=== PATIENT | male | born 1935 | race African-American/Black ===

== ENCOUNTER 2017-11-18 08:22 | Emergency (ER) | payer OTHER ==
--- OUTSIDE RECORDS SUMMARY | 2017-11-18 08:34 | XMS REPORT ---
:1935 External Reference #:[id number] Author Organization [facility] Address [address] [place] [address] Phone [phone] Care Team Providers Name Role Phone Enrique Espinoza MD Care Team Information Networking Technician Unavailable Enrique Espinoza MD Primary Care Physician Unavailable Payers Type Date Identification Payment Subscriber Numbers Provider Health Maintenance Effective: Policy Number: Anibal Collazo [facility] [place] [place] 05/03/2012 [id number] [facility] Expires: 06/02/2016 Group Number: [id number] [id number] Group Name: NETTEYOGI CabaLULU [id number] PayID: [id number] Health Maintenance Effective: Policy Number: [facility] [place] 05/18/2016 [id number] [facility] Group Number: [id number] [id number] PayID: [id number] [place] [address] Problems Date Description Provider Status Onset: 05/23/2009 Essential hypertension Aj Bauer M.D. Active Onset: 05/23/2009 Asthma without status asthmaticus Aj Bauer M.D. Active Onset: 08/28/2009 Type 2 diabetes mellitus Alejandro Ventura M.D. Active Onset: 10/19/2011 Acute maxillary sinusitis Alejandro Ventura M.D. Active Onset: 04/08/2012 Allergic rhinitis Alejandro Ventura M.D. Active Onset: 2012 Pure hypercholesterolemia Alejandro Ventura M.D. Active Onset: 11/16/2013 Cobalamin deficiency Enrique Espinoza M.D. Active Onset: 12/17/2014 Edema Ryan Duenas M.D. Active Onset: 04/09/2015 Acute upper respiratory infection, Enrique Espinoza M.D. Active unspecified Onset: 07/13/2016 Mixed hyperlipidemia Enrique Espinoza M.D. 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 [employer] Cigarette Use Former Cigarette Smoker quit 1975 ETOH Use Occasionally consumes alcohol Smoking Patient is a former smoker Daily Caffeine Consumes on average 1 cup of coffee per day Exercise Type/Frequency Current Does not exercise currently Allergies, Adverse Reactions, Alerts Date Description Reaction Status Severity Comments 02/04/2011 NKDA active 04/23/2009 Shellfish-derived Products active 03/29/2010 Cats active 04/23/2010 Ants active Medications Medication Date Status Form Strength Qnty SIG Indications Ordering Provider Valsartan 07/13 Active Tablets 160mg 90tab 1 by Enrique Watkins /2016 s mouth Darlow, once a M.D. day Rosuvastatin 07/13 Active Tablets 5mg 90tab 1 by E78.2 Enrique Watkins Calcium s mouth Darlow, every day M.D. Epipen 2-Larry 07/11 Active Solution 0.3mg/0.3 2unit use as Auto-Inject ML s directed NIMESH Mccullough Zyrtec Allergy Active Capsules 10mg 1 po qd Unknown /0000 prn Dymista Active Suspension 137-50mcg 1 spray Unknown /0000 /Act each nostril twice daily. Systane Active Solution 0.4-0.3% 2 or 3 Unknown /0000 times daily Montelukast Active Tablets 10mg 1 by Unknown Sodium /0000 mouth every day Mometasone Active Suspension 50mcg/Act use two Unknown Furoate /0000 sprays in each nostril every day as needed for allergies Amoxicillin/Clav 05/06 Hx Tablets 500-125mg 28tab 1 by J01.90 Honey chou /2017 s mouth Tre, Potassium - twice a CAR LOADER 07/12 day x days Azithromycin 06/05 Hx Tablets 250mg 7tabs 2 take by J06.9 Honey mouth Tre, - tabletsto CAR LOADER 07/12 day, one tab days 2-5 until finished Azithromycin 05/02 Hx Tablets 250mg 7tabs 2 take by Latonia mouth Jamel, - tabletsto CAR LOADER 06/05 day, one tab days 2-5 until finished Guaifenesin ac 07/08 Hx Syrup 100-10mg/ 473ml 1-2 Ryan J. 5ML teaspoon Breiman, - by mouth M.D. 05/02 every hours as needed cough Prednisone 07/08 Hx Tablets 20mg 18tab 3 x 3 Ryan J. s days 2 x Breiman, - 3 days 1 M.D. 05/02 x 3 Guaifenesin ac 06/24 Hx Syrup 100-10mg/ 4oz 1-2 Amaris 5ML teaspoon [place], - by mouth Afnp-C every hours as needed cough Doxycycline 06/24 Hx Capsules 100mg 20cap 1 by [id number] Amaris Hyclate /2015 s mouth [place], - twice a Afnp-C Amoxicillin 06/05 Hx Tablets 875mg 14tab 1 tab J00 Enrique A. s twice a Darlow, - day x 7 M.D. Amoxicillin 04/09 Hx Tablets 875mg 14tab 1 tab J06.9 Enrique A. s twice a Darlow, - day x 7 M.D. Lasix 12/17 Hx Tablets 20mg 10tab 1 by Ryan Keys /2014 s mouth Breiman, - every day M.D. 06/05 Swelling Amoxicillin 03/28 Hx Tablets 875mg 14tab 1 tab 460 Enrique A. /2013 s twice a Darlow, - day x 7 M.D. Amoxicillin/Clav 08/29 Hx Tablets 500-125mg 20tab 1 po bid 461.0 Alejandro chou /2013 s Wen Ventura Potassium - 11/16 Nascobal 08/10 Hx Solution 500mcg/0. 2.3ml one spray 281.1 Enrique A. 1ML in one Alexis - nostril M.DSandy 06/05 per week administe r one hour before or after hot liquid or food Azithromycin 08/08 Hx Tablets 250mg 6tabs 2 po Allen A. today and Wen Ventura - 1 po x 4 Aleve 03/08 Hx Tablets 220mg 1 po bid [facility] 07/12 [facility] [employer] [place] Saw Corinne 03/08 Hx Capsules 160mg 1 PO qd [facility] 06/05 Of [employer] [place] Astelin 03/08 Hx Solution 137mcg/Sp 1midi 1-2 ray sprays [facility] 07/12 nostril Of [employer] [place] bid Valsartan/Hydroc 09/17 Hx Tablets 160-12.5m 90tab Take 1 401.9 Enrique A. hlorothiazide g s Tablet Alexis - Daily M.DSandy 05/02 Atorvastatin 08/12 Hx Tablets 40mg 90tab 1 po qd 272.4 Allen A. s Wen Ventura - 05/02 Azithromycin 07/20 Hx Tablets 250mg 6tabs 2 po 465.9 Allen A. today and Wen Ventura - 1 po x 4 Azithromycin 10/18 Hx Tablets 250mg 6tabs 2 po 461.0 Allen A. today and Wen Ventura - 1 po x 4 Pravastatin 10/09 Hx Tablets 40mg 90tab take one 272.4 Allen A. Sodium s tablet by Wen Ventura - mouth qhs 08/12 Diovan HCT 10/05 Hx Tablets 160-12.5m 90tab 1 po qd 401.9 Allen A. /2011 g s Wen Ventura - 09/17 Metformin HCL ER 10/05 Hx Tablets ER 750mg 90tab take one 250.00 Enrique Watkins 24HR s tablet by Alexis - mouth M.Rodney 05/02 morning Medrol 01/20 Hx Tablets 4mg 1tabs dose-pack 461.1 as Wen Ventura - instructe 10/05 Diovan HCT 01/20 Hx Tablets 80-12.5mg 30tab one tab 401.9 Allen s po daily Wen Ventura - 10/05 Azithromycin 09/16 Hx Tablets 250mg 6tabs 2 po today and Wen Ventura - 1 po x 4 Diovan 09/15 Hx Tablets 80mg 90tab 1 po qd 401.9 Poneto s Wen Ventura - 01/20 Metformin HCL ER 09/15 Hx Tablets ER 500mg 90tab 1 po qd 250.00 Allen 24HR s Wen Ventura - 10/05 Amoxicillin/Clav 05/26 Hx Tablets 500-125mg 20tab 1 po bid 465.9 Poneto June anat s Wen Ventura Potassium - 07/19 Pataday 05/12 Hx Solution 0.2% 3mont apply to hs affected Wen Ventura - eye(s) 10/05 Buspirone HCL 04/23 Hx Tablets 15mg 60tab one tab 300.00 Allen A. s po bid as Wen Ventura - discussed 07/19 Pravastatin 04/23 Hx Tablets 20mg 90tab 1 po qd 272.4 Allen ASandy s Wen Ventura - 10/09 Amoxicillin-Pot 09/19 Hx Tablets 500-125mg 20tab one tab 461.0 Allen A. Clavulanate s po every Wen Ventura - 12 hours 01/13 for Breeze 2 Testing 07/24 Hx 1Box test blood Tre, - sugar CAR LOADER 05/02 qd-bid Breeze 2 Lancets 07/24 Hx 1Box use with Breeze 2 Tre, - glucomete CAR LOADER 05/02 r qd-bid Pravastatin 07/22 Hx Tablets 10mg 90tab 1 po qd 272.4 Allen A. Sodium s Wen Ventura - 04/23 Metformin HCL 07/22 Hx Tablets ER 500mg 90tab 1 po qd 250.00 24HR s Tuan - Afnp-C 09/15 Epipen 07/08 Hx Device 0.3mg/0.3 2unit use as Alejandro Sandy ML s directed Wen Ventura - (1:1000 07/11 Proventyl HFA 07/08 Hx Aerosol 90mcg/Act 1unit two puffs Allen . s wilver Ventura M.D. - four 07/15 hours needed Astepro 06/01 Hx Solution 137mcg/Sp 2 sprays ray bid [facility] 07/08 Of Patanol 06/01 Hx Solution 0.1% 1 gtt Both eyes [facility] - bid [facility] 05/12 Of Bactrim DS 06/01 Hx Tablets 800-160mg 20tab 1 po bid Aj T. s Juancarlos, - M.D. 07/08 Azithromycin 05/23 Hx Tablets 250mg 6tabs 2 po Aj T. /2009 today and Juancarlos, - 1 po x 4 M.D. Triamcinalone 05/14 Hx 0.1% 30gm apply to Allen A. Acetonide affected Wen Ventura - area 03/29 bid-tid Diovan 04/23 Hx Tablets 40mg 90tab 1 po qd Allen A. s Wen Ventura - 09/15 Tricor 04/23 Hx Tablets 48mg 1 po qd [facility] 07/08 Of Nasonex 04/23 Hx Suspension 50mcg/Act 3unit 2 Enrique A. s sprays/no Darlow, - stril/day M.D. 07/12 prn /2016 Patanase 04/23 Hx Solution 0.6% 2 Sprays Each [facility] - Nostril [facility] 07/08 prn Of Ipratropium 04/23 Hx Solution 0.06% 2 Sprays [facility] [place] Nasal Each Medicine Solution - Nostirl [facility] 07/08 prn Of Advair Diskus 04/23 Hx Misc 250-50mcg 1 puff /2008 /Dose bid [facility] 07/08 Of Ventolin HFA 04/23 Hx Aerosol 108(90Bas 2 puffs e) mcg/ac qid prn [facility] 07/08 Of Zyrtec Allergy Hx Tablets 10mg 30tab 1 po qd Unknown /0000 s - 07/15 Econazole Hx Cream 1% 45gm apply bid Unknown Nitrate /0000 to - affected 03/29 Astepro Hx Solution 137mcg/Sp 2 sprays Unknown /0000 ray bid - 03/07 Fluorometholone Hx Suspension 0.1% 1 gtt Unknown /0000 left eye - q2hrs 05/02 awake One A Day Men's Hx 1 po qd Unknown 50+ /0000 - 06/05 Montelukast Hx Tablets 10mg 1 by Unknown Sodium /0000 mouth at - bedtime 05/02 Medications Administered in Office Medication Date Status Form Strength Qnty SIG Indications Ordering Provider Injection 08/24/ Administered Injection Unknown Subcutaneous Or 2018 Intramuscular Immunizations CPT Code Status Date Vaccine Lot # [id number] Given 01/13/2017 High-Dose, Influenza Virus Vacccine-fluzone 65 and [id number] older [id number] Given 07/13/2016 Pneumococcal Conjugate Vacc-13 [id number] Given 01/30/2016 Influenza Vac, [place], [place] [id number] Given 10/06/2011 Pneumococcal Immunization [id number] Given 10/06/2011 Tdap Tetanus, W Pertussis [id number] Vital Signs Date Vital Result Comment 11/09/2017 BP Systolic 150 mmHg BP Diastolic 70 mmHg Heart Rate 90 /min Body Temperature 98.1 F Height 71.25 inches 5'11.25" Weight 229.00 lb BMI (Body Mass Index) 31.7 kg/m2 07/24/2017 BP Systolic 140 mmHg BP Diastolic 60 mmHg Heart Rate 78 /min Body Temperature 97.9 F Respiratory Rate 16 /min Height 71.25 inches 5'11.25" Weight 221.00 lb BMI (Body Mass Index) 30.6 kg/m2 07/13/2017 BP Systolic 130 mmHg BP Diastolic 64 mmHg Heart Rate 74 /min Body Temperature 98.2 F Respiratory Rate 16 /min Height 71.25 inches 5'11.25" Weight 223.00 lb BMI (Body Mass Index) 30.9 kg/m2 05/06/2017 BP Systolic 120 mmHg BP Diastolic 76 mmHg Heart Rate 72 /min Body Temperature 97.3 F Height 71.25 inches 5'11.25" Weight 229.00 lb BMI (Body Mass Index) 31.7 kg/m2 02/24/2017 BP Systolic 148 mmHg BP Diastolic 78 mmHg Heart Rate 72 /min Body Temperature 97.5 F Height 71.25 inches 5'11.25" Weight 226.00 lb BMI (Body Mass Index) 31.3 kg/m2 01/13/2017 BP Systolic 124 mmHg BP Diastolic 64 mmHg Heart Rate 68 /min Body Temperature 98.2 F Respiratory Rate 16 /min Height 71.25 inches 5'11.25" Weight 222.00 lb BMI (Body Mass Index) 30.7 kg/m2 07/13/2016 BP Systolic 140 mmHg BP Diastolic 74 mmHg Heart Rate 78 /min Body Temperature 98.1 F Respiratory Rate 16 /min Height 71.25 inches 5'11.25" Weight 219.00 lb BMI (Body Mass Index) 30.3 kg/m2 06/05/2016 BP Systolic 118 mmHg BP Diastolic 80 mmHg Heart Rate 72 /min Body Temperature 98.0 F Respiratory Rate 18 /min Height 71.25 inches 5'11.25" Weight 223.00 lb BMI (Body Mass Index) 30.9 kg/m2 05/02/2016 BP Systolic 142 mmHg BP Diastolic 80 mmHg Heart Rate 76 /min Body Temperature 98.4 F Respiratory Rate 16 /min Height 71.25 inches 5'11.25" Weight 223.00 lb BMI (Body Mass Index) 30.9 kg/m2 07/09/2015 BP Systolic 144 mmHg BP Diastolic 80 mmHg Heart Rate 80 /min Body Temperature 98.0 F Respiratory Rate 18 /min O2 % BldC Oximetry 97 % Height 71.25 inches 5'11.25" Weight 236.00 lb BMI (Body Mass Index) 32.7 kg/m2 06/24/2015 BP Systolic 150 mmHg BP Diastolic 80 mmHg Heart Rate 74 /min Body Temperature 98.6 F Respiratory Rate 16 /min Height 71.25 inches 5'11.25" 06/05/2015 BP Systolic 160 mmHg BP Diastolic 80 mmHg Heart Rate 76 /min Body Temperature 97.9 F Respiratory Rate 16 /min O2 % BldC Oximetry 96 % Height 71.25 inches 5'11.25" Weight 236.00 lb BMI (Body Mass Index) 32.7 kg/m2 04/09/2015 BP Systolic 142 mmHg BP Diastolic 74 mmHg Heart Rate 80 /min Body Temperature 97.4 F Respiratory Rate 18 /min O2 % BldC Oximetry 97 % Height 71.25 inches 5'11.25" Weight 237.00 lb BMI (Body Mass Index) 32.8 kg/m2 12/25/2014 BP Systolic 138 mmHg BP Diastolic 72 mmHg Heart Rate 68 /min Body Temperature 98.6 F Respiratory Rate 18 /min Height 71.25 inches 5'11.25" Weight 234.00 lb BMI (Body Mass Index) 32.4 kg/m2 12/17/2014 BP Systolic 140 mmHg BP Diastolic 70 mmHg Heart Rate 64 /min Body Temperature 98.2 F Respiratory Rate 18 /min Height 71.25 inches 5'11.25" Weight 238.00 lb BMI (Body Mass Index) 33.0 kg/m2 07/09/2014 BP Systolic 128 mmHg BP Diastolic 68 mmHg Heart Rate 68 /min Body Temperature 97.4 F Respiratory Rate 97.4 /min Height 71.25 inches 5'11.25" Weight 228.00 lb BMI (Body Mass Index) 31.6 kg/m2 03/28/2014 BP Systolic 120 mmHg BP Diastolic 68 mmHg Heart Rate 68 /min Body Temperature 97.8 F Respiratory Rate 16 /min O2 % BldC Oximetry 98 % Height 71.25 inches 5'11.25" Weight 233.00 lb BMI (Body Mass Index) 32.3 kg/m2 12/21/2013 BP Systolic 124 mmHg BP Diastolic 64 mmHg Heart Rate 88 /min Body Temperature 99.1 F Respiratory Rate 20 /min Height 71.25 inches 5'11.25" Weight 232.00 lb BMI (Body Mass Index) 32.1 kg/m2 11/16/2013 BP Systolic 128 mmHg BP Diastolic 60 mmHg Heart Rate 76 /min Body Temperature 98.0 F Respiratory Rate 20 /min Height 71.25 inches 5'11.25" Weight 232.00 lb BMI (Body Mass Index) 32.1 kg/m2 08/29/2013 BP Systolic 122 mmHg BP Diastolic 74 mmHg Heart Rate 78 /min Body Temperature 97.1 F Height 71.25 inches 5'11.25" Weight 230.38 lb BMI (Body Mass Index) 31.9 kg/m2 08/10/2013 BP Systolic 152 mmHg BP Diastolic 90 mmHg Heart Rate 60 /min Body Temperature 97.7 F Respiratory Rate 16 /min Height 71.25 inches 5'11.25" Weight 235.00 lb BMI (Body Mass Index) 32.5 kg/m2 08/08/2013 BP Systolic 130 mmHg BP Diastolic 76 mmHg Heart Rate 80 /min Body Temperature 97.2 F Respiratory Rate 18 /min Height 71.25 inches 5'11.25" Weight 235.00 lb BMI (Body Mass Index) 32.5 kg/m2 07/11/2013 BP Systolic 126 mmHg BP Diastolic 70 mmHg Heart Rate 84 /min Body Temperature 97.6 F Height 71.25 inches 5'11.25" Weight 230.00 lb BMI (Body Mass Index) 31.9 kg/m2 03/08/2013 BP Systolic 138 mmHg BP Diastolic 65 mmHg Heart Rate 84 /min Body Temperature 98.0 F Height 71.25 inches 5'11.25" Weight 228.12 lb BMI (Body Mass Index) 31.6 kg/m2 02/15/2013 BP Systolic 138 mmHg BP Diastolic 70 mmHg Heart Rate 68 /min Body Temperature 97.2 F Respiratory Rate 16 /min Height 71.25 inches 5'11.25" Weight 231.25 lb BMI (Body Mass Index) 32.0 kg/m2 2012 BP Systolic 120 mmHg BP Diastolic 72 mmHg Heart Rate 72 /min Body Temperature 97.5 F Height 71.25 inches 5'11.25" Weight 232.25 lb BMI (Body Mass Index) 32.2 kg/m2 07/29/2012 BP Systolic 140 mmHg BP Diastolic 88 mmHg Heart Rate 68 /min Body Temperature 97.7 F Height 71.25 inches 5'11.25" Weight 228.00 lb BMI (Body Mass Index) 31.6 kg/m2 07/20/2012 BP Systolic 150 mmHg BP Diastolic 70 mmHg Heart Rate 76 /min Body Temperature 98.1 F Respiratory Rate 18 /min O2 % BldC Oximetry 98 % Height 71.25 inches 5'11.25" Weight 228.00 lb BMI (Body Mass Index) 31.6 kg/m2 04/08/2012 BP Systolic 160 mmHg BP Diastolic 80 mmHg Heart Rate 80 /min Body Temperature 97.5 F Height 71.25 inches 5'11.25" Weight 228.00 lb BMI (Body Mass Index) 31.6 kg/m2 10/19/2011 BP Systolic 134 mmHg BP Diastolic 70 mmHg Heart Rate 84 /min Body Temperature 98.7 F Height 71.25 inches 5'11.25" Weight 234.00 lb BMI (Body Mass Index) 32.4 kg/m2 10/06/2011 BP Systolic 140 mmHg BP Diastolic 70 mmHg Heart Rate 72 /min Body Temperature 97.5 F Height 71.25 inches 5'11.25" Weight 231.00 lb BMI (Body Mass Index) 32.0 kg/m2 02/04/2011 BP Systolic 130 mmHg BP Diastolic 78 mmHg Heart Rate 78 /min Body Temperature 97.8 F Height 71.25 inches 5'11.25" Weight 235.00 lb BMI (Body Mass Index) 32.5 kg/m2 01/20/2011 BP Systolic 150 mmHg BP Diastolic 82 mmHg Heart Rate 64 /min Body Temperature 97.7 F Height 71.25 inches 5'11.25" Weight 236.00 lb BMI (Body Mass Index) 32.7 kg/m2 12/16/2010 BP Systolic 140 mmHg BP Diastolic 78 mmHg Heart Rate 88 /min Body Temperature 98.4 F Height 71.25 inches 5'11.25" Weight 239.50 lb BMI (Body Mass Index) 33.2 kg/m2 12/01/2010 BP Systolic 120 mmHg BP Diastolic 54 mmHg Heart Rate 54 /min Height 71.25 inches 5'11.25" Weight 238.00 lb BMI (Body Mass Index) 33.0 kg/m2 09/15/2010 BP Systolic 160 mmHg BP Diastolic 82 mmHg Heart Rate 68 /min Body Temperature 98.5 F Respiratory Rate 16 /min O2 % BldC Oximetry 98 % Height 71.25 inches 5'11.25" Weight 233.00 lb BMI (Body Mass Index) 32.3 kg/m2 07/19/2010 BP Systolic 158 mmHg BP Diastolic 72 mmHg Heart Rate 66 /min Body Temperature 97.7 F Height 71.25 inches 5'11.25" Weight 236.00 lb BMI (Body Mass Index) 32.7 kg/m2 05/26/2010 BP Systolic 130 mmHg BP Diastolic 80 mmHg Heart Rate 60 /min Body Temperature 97.6 F Height 71.25 inches 5'11.25" Weight 233.00 lb BMI (Body Mass Index) 32.3 kg/m2 05/19/2010 BP Systolic 132 mmHg BP Diastolic 76 mmHg Heart Rate 90 /min Body Temperature 98.3 F Height 71.25 inches 5'11.25" Weight 231.00 lb BMI (Body Mass Index) 32.0 kg/m2 04/23/2010 BP Systolic 128 mmHg BP Diastolic 80 mmHg Heart Rate 72 /min Body Temperature 99.0 F Height 71.25 inches 5'11.25" Weight 225.00 lb BMI (Body Mass Index) 31.2 kg/m2 03/29/2010 BP Systolic 150 mmHg BP Diastolic 78 mmHg Heart Rate 88 /min Body Temperature 97.4 F Respiratory Rate 20 /min O2 % BldC Oximetry 99 % Height 71.25 inches 5'11.25" Weight 228.00 lb BMI (Body Mass Index) 31.6 kg/m2 01/13/2010 BP Systolic 150 mmHg BP Diastolic 80 mmHg Heart Rate 84 /min Body Temperature 98.9 F Respiratory Rate 20 /min Height 71.25 inches 5'11.25" Weight 22.00 lb BMI (Body Mass Index) 3.0 kg/m2 09/19/2009 BP Systolic 126 mmHg BP Diastolic 70 mmHg Heart Rate 68 /min Body Temperature 98.7 F Height 70.75 inches 5'10.75" 08/28/2009 BP Systolic 160 mmHg BP Diastolic 86 mmHg Heart Rate 71 /min Body Temperature 98.0 F Height 70.75 inches 5'10.75" Weight 233.00 lb BMI (Body Mass Index) 32.7 kg/m2 07/24/2009 BP Systolic 122 mmHg BP Diastolic 80 mmHg Heart Rate 78 /min Body Temperature 98.2 F Height 70.75 inches 5'10.75" Weight 240.00 lb BMI (Body Mass Index) 33.7 kg/m2 07/22/2009 BP Systolic 112 mmHg BP Diastolic 68 mmHg Heart Rate 78 /min Body Temperature 97.7 F Weight 238.00 lb 07/15/2009 BP Systolic 130 mmHg BP Diastolic 70 mmHg Heart Rate 86 /min Body Temperature 98.4 F Weight 241.00 lb 07/08/2009 BP Systolic 140 mmHg BP Diastolic 82 mmHg Heart Rate 62 /min Weight 236.00 lb 06/01/2009 BP Systolic 126 mmHg BP Diastolic 68 mmHg Heart Rate 78 /min Body Temperature 98.5 F Height 70.75 inches 5'10.75" Weight 236.00 lb BMI (Body Mass Index) 33.1 kg/m2 05/23/2009 BP Systolic 138 mmHg BP Diastolic 80 mmHg Heart Rate 72 /min Body Temperature 97.7 F Height 70.75 inches 5'10.75" Weight 239.00 lb BMI (Body Mass Index) 33.6 kg/m2 05/14/2009 BP Systolic 140 mmHg BP Diastolic 80 mmHg Heart Rate 80 /min Height 70.75 inches 5'10.75" Weight 240.00 lb BMI (Body Mass Index) 33.7 kg/m2 04/23/2009 BP Systolic 156 mmHg BP Diastolic 82 mmHg Heart Rate 78 /min Body Temperature 97.9 F Height 70.75 inches 5'10.75" Weight 232.00 lb BMI (Body Mass Index) 32.6 kg/m2 Results Test Date Test Result H/L Range Note Comprehensive Metabolic Prof 07/13/2017 Sodium 145 mEq/L 134-149 Potassium 4.5 mEq/L 3.6-5.5 Chloride 103 mEq/L 94-112 Carbon Dioxide 26 mEq/L 21-32 Glucose 118 mg/dL High 70-105 1 BUN 11 mg/dL 6-26 Creatinine 0.9 mg/dL 0.6-1.4 BUN/Creat Ratio 12.2 CALC 8.0-36.0 Calcium 9.7 mg/dL 8.6-10.2 Total Protein 7.7 g/dL 6.4-8.3 Albumin 4.3 g/dL 3.8-5.5 Globulin 3.4 g/dL 2.0-4.8 A/G Ratio 1.3 CALC 0.6-2.3 Alk. Phosphatase 65 U/L 22-95 Alt (SGPT) 22 U/L 7-35 Ast (Sgot) 24 U/L 5-34 Total Bilirubin 1.0 mg/dL 0.2-1.3 GFR Non- >60 ml/min/1.73m^ >=60 GFR >60 ml/min/1.73m^ >=60 Lipid Profile 07/13/2017 Cholesterol 135 mg/dL 120-200 Triglycerides 75 mg/dL 30-200 HDL Cholesterol 47 mg/dL 30-70 LDL (Calculated) 73 CALC 0-129 VLDL Cholesterol 15 mg/dL 0-50 HDL Risk Factor 2.9 CALC 0.0-4.4 Laboratory test finding 07/13/2017 Hemoglobin A1c (Fma) 5.9 % High 4.1- 5.7 Laboratory test finding 01/13/2017 Hemoglobin A1c (Fma) 5.9 % High 4.1- 5.7 Comprehensive Metabolic Prof 01/13/2017 Sodium 141 mEq/L 134-149 Potassium 4.4 mEq/L 3.6-5.5 Chloride 104 mEq/L 94-112 Carbon Dioxide 24 mEq/L 21-32 Glucose 107 mg/dL High 70-105 2 BUN 12 mg/dL 6-26 Creatinine 0.9 mg/dL 0.6-1.4 BUN/Creat Ratio 13.3 CALC 8.0-36.0 Calcium 9.5 mg/dL 8.6-10.2 Total Protein 7.3 g/dL 6.4-8.3 Albumin 4.4 g/dL 3.8-5.5 Globulin 2.9 g/dL 2.0-4.8 A/G Ratio 1.5 CALC 0.6-2.3 Alk. Phosphatase 52 U/L 22-95 Alt (SGPT) 17 U/L 7-35 Ast (Sgot) 21 U/L 5-34 Total Bilirubin 1.2 mg/dL 0.2-1.3 GFR Non- >60 ml/min/1.73m^ >=60 GFR >60 ml/min/1.73m^ >=60 Comprehensive Metabolic Prof 07/03/2016 Sodium 144 mEq/L 134-149 Potassium 4.9 mEq/L 3.6-5.5 Chloride 107 mEq/L 94-112 Carbon Dioxide 32 mEq/L 21-32 Glucose 109 mg/dL High 70-105 BUN 10 mg/dL 6-26 Creatinine 0.9 mg/dL 0.6-1.4 BUN/Creat Ratio 11.1 CALC 8.0-36.0 Calcium 9.5 mg/dL 8.6-10.2 Total Protein 7.3 g/dL 6.4-8.3 Albumin 4.2 g/dL 3.8-5.5 Globulin 3.1 g/dL 2.0-4.8 A/G Ratio 1.4 CALC 0.6-2.3 Alk. Phosphatase 64 U/L 22-95 Alt (SGPT) 19 U/L 7-35 Ast (Sgot) 21 U/L 5-34 Total Bilirubin 1.2 mg/dL 0.2-1.3 GFR Non- >60 ml/min/1.73m^ >=60 GFR >60 ml/min/1.73m^ >=60 Lipid Profile 07/03/2016 Cholesterol 205 mg/dL High 120-200 Triglycerides 68 mg/dL 30-200 HDL Cholesterol 45 mg/dL 30-70 LDL (Calculated) 146 CALC High 0-129 VLDL Cholesterol 14 mg/dL 0-50 HDL Risk Factor 4.6 CALC High 0.0-4.4 Laboratory test finding 07/03/2016 PSA 2.7 ng/mL 0.0-4.0 Complete Blood Count 07/03/2016 WBC 5.1 x10^3/UL 3.6-9.6 RBC 4.78 x10^6/UL 3.90-5.70 HGB 14.5 g/dL 12.1-17.2 HCT 44 % 36-50 MCV 92.0 fL 82.2-97.4 MCH 30.3 pg 27.6-33.3 MCHC 33.0 g/dL 33.0-35.5 RDW 13.5 % 11.6-13.7 PLT 271 x10^3/UL 150-400 MPV 7.2 fL Low 7.4-10.4 Gran # 2.7 x10^3/UL 1.5-7.2 Lymph# 2.0 x10^3/UL 0.7-4.9 [place]# 0.4 x10^3/UL 0.1-0.9 Gran % 51.9 % 42.2-75.2 Lymph % 39.6 % 20.5-51.1 [place]% 8.5 % 1.7-9.3 Comprehensive Metabolic Prof 05/02/2016 Sodium 142 mEq/L 134-149 Potassium 4.4 mEq/L 3.6-5.5 Chloride 103 mEq/L 94-112 Carbon Dioxide 27 mEq/L 21-32 Glucose 106 mg/dL High 70-105 BUN 10 mg/dL 6-26 Creatinine 0.9 mg/dL 0.6-1.4 BUN/Creat Ratio 11.1 CALC 8.0-36.0 Calcium 9.4 mg/dL 8.6-10.2 Total Protein 7.0 g/dL 6.4-8.3 Albumin 4.0 g/dL 3.8-5.5 Globulin 3.0 g/dL 2.0-4.8 A/G Ratio 1.3 CALC 0.6-2.3 Alk. Phosphatase 62 U/L 22-95 Alt (SGPT) 20 U/L 7-35 Ast (Sgot) 23 U/L 5-34 Total Bilirubin 1.3 mg/dL 0.2-1.3 GFR Non- >60 ml/min/1.73m^ >=60 GFR >60 ml/min/1.73m^ >=60 Lipid Profile 05/02/2016 Cholesterol 172 mg/dL 120-200 Triglycerides 170 mg/dL 30-200 HDL Cholesterol 43 mg/dL 30-70 LDL (Calculated) 95 CALC 0-129 VLDL Cholesterol 34 mg/dL 0-50 HDL Risk Factor 4.0 CALC 0.0-4.4 Laboratory test finding 05/02/2016 TSH 2.15 mIU/L 0.50-6.00 3 Free T4 1.01 ng/dL 0.75-1.54 PSA 3.9 ng/mL 0.0-4.0 Laboratory test finding 05/02/2016 Hemoglobin A1c (a) 6.0 % High 4.1- 5.7 CBC Electronic ([facility]) 05/02/2016 WBC 5.8 3.6-9.6 RBC 4.78 3.90-5.70 Hemoglobin (Fma/CMC/CTX) 14.4 g/dL 12.1 - 17.2 Hematocrit (Fma/CMC/CTX) 44.0 % 36.1 - 50.3 Platelets 276 10^3/ul 150-400 Lymph% 47.9 % 17.0-48.0 Mixed% 7.7 Neutrophils % 44.4 Mean Corpuscular Vol 92 82.2-97.4 Mean Corpuscular Hemoglobin 30.1 27.6-33.3 Mean Corpuscular Hemo Concen 32.6 32.0-36.0 RDW 13.4 11.6-13.7 Mean Platelet Volume 7.0 5.5-11.0 Ua - Micro ([facility]) 05/02/2016 Appearance clear Color yellow Glucose, Urine (Fma/CMC/CTX) neg Bilirubin neg Ketones neg SP Grav 1.015 Blood trace-lysed PH 7.0 Protein neg Urobil 1.0 Nitrite neg Leukocytes (Fma/CMC/[facility]) neg Hyaline - /Lpf Granular - /Lpf WBC (a,[facility]) - RBC 0-1 Mucus - /Lpf Epith - /Lpf Bacteria - /Hpf Amorphous - /Lpf Crystals, Fluid (Fma/CMC/CTX) - Z#Comments - Microalbumin 24 HR (Fma) 01/05/2015 Microalbumin 24 HR (Fma) <5.0 mg/dL 0 -92.1 Volume, Total 2400mls Ua - Non Micro (a) 01/05/2015 Appearance yellow Color clear Glucose, Urine (Fma/CMC/CTX) neg Bilirubin neg Ketones <1.005 SP Grav neg Blood 6.0 PH neg Protein neg Urobil 0.2 Nitrite neg Leukocytes (Fma/CMC/Centrex) neg Laboratory test finding 12/25/2014 Hemoglobin A1c (a/CMC,CX) 6.2 % High 4.1-5.7 Ua - Micro (Fma) 12/25/2014 Appearance clear Color yellow Glucose, Urine (Fma/CMC/CTX) neg Bilirubin neg Ketones neg SP Grav 1.015 Blood small PH 5.5 Protein neg Urobil 0.2 Nitrite neg Leukocytes (Fma/CMC/Centrex) neg Hyaline - /Lpf Granular - /Lpf WBC (a,Centrex) - RBC - Mucus 2-4 /Lpf Epith - /Lpf Bacteria - /Hpf Amorphous - /Lpf Crystals, Fluid (Fma/CMC/CTX) - Z#Comments - Comprehensive Metabolic Prof 12/25/2014 Sodium 139 mEq/L 134-149 Potassium 4.0 mEq/L 3.6-5.5 Chloride 102 mEq/L 94-112 Carbon Dioxide 23 mEq/L 21-32 Glucose 148 mg/dL High 70-105 4 BUN 14 mg/dL 6-26 Creatinine 0.8 mg/dL 0.6-1.4 BUN/Creat Ratio 17.5 CALC 8.0-36.0 Calcium 9.0 mg/dL 8.6-10.2 Total Protein 6.9 g/dL 6.4-8.3 Albumin 4.0 g/dL 3.8-5.5 Globulin 2.9 g/dL 2.0-4.8 A/G Ratio 1.4 CALC 0.6-2.3 Alk. Phosphatase 41 U/L 22-95 Alt (SGPT) 25 U/L 7-35 Ast (Sgot) 24 U/L 5-34 Total Bilirubin 0.7 mg/dL 0.2-1.3 GFR Non- >60 ml/min/1.73m^ >=60 GFR >60 ml/min/1.73m^ >=60 Lipid Profile 12/25/2014 Cholesterol 210 mg/dL High 120-200 Triglycerides 113 mg/dL 30-200 HDL Cholesterol 49 mg/dL 30-70 LDL (Calculated) 138 CALC High 0-129 VLDL Cholesterol 23 mg/dL 0-50 HDL Risk Factor 4.3 CALC 0.0-4.4 Laboratory test 07/09/2014 Hemoglobin A1c 6.2 % High 4.1-5.7 finding (Fma/CMC,CX) Complete Blood Count 07/09/2014 WBC 6.5 x10^3/UL 3.6-9.6 RBC 4.41 x10^6/UL 3.90-5.70 HGB 13.4 g/dL 12.1-17.2 HCT 40 % 36-50 MCV 92.0 fL 82.2-97.4 MCH 30.5 pg 27.6-33.3 MCHC 33.3 g/dL 33.0-35.5 RDW 12.0 % 11.6-13.7 PLT 218 x10^3/UL 150-400 MPV 8.1 fL 7.4-10.4 Gran # 2.6 x10^3/UL 1.5-7.2 Lymph# 3.5 x10^3/UL 0.7-4.9 [place]# 0.4 x10^3/UL 0.1-0.9 Gran % 39.3 % Low 42.2-75.2 Lymph % 54.0 % High 20.5-51.1 [place]% 6.7 % 1.7-9.3 Comprehensive Metabolic Prof 07/09/2014 Sodium 134 mEq/L 134-149 Potassium 4.0 mEq/L 3.6-5.5 Chloride 102 mEq/L 94-112 Carbon Dioxide 32 mEq/L 21-32 Glucose 140 mg/dL High 70-105 BUN 13 mg/dL 6-26 Creatinine 1.0 mg/dL 0.6-1.4 BUN/Creat Ratio 13.0 CALC 8.0-36.0 Calcium 9.0 mg/dL 8.6-10.2 Total Protein 7.7 g/dL 6.4-8.3 Albumin 4.0 g/dL 3.8-5.5 Globulin 3.7 g/dL 2.0-4.8 A/G Ratio 1.1 CALC 0.6-2.3 Alk. Phosphatase 50 U/L 22-95 Alt (SGPT) 28 U/L 7-35 Ast (Sgot) 24 U/L 5-34 Total Bilirubin 1.3 mg/dL 0.2-1.3 Laboratory test finding 07/09/2014 Free T4 0.98 ng/dL 0.75-1.54 5 TSH 1.88 mIU/L 0.50-6.00 Lipid Profile 07/09/2014 Cholesterol 135 mg/dL 120-200 Triglycerides 102 mg/dL 30-200 HDL Cholesterol 46 mg/dL 30-70 LDL (Calculated) 69 CALC 0-129 VLDL Cholesterol 20 mg/dL 0-50 HDL Risk Factor 2.9 CALC 0.0-4.4 Laboratory test finding 07/09/2014 PSA 2.0 ng/mL 0.0-4.0 Influenza A&B-fma 03/28/2014 Influenza A neg Influenza B neg Laboratory test 07/28/2013 Intrinsic Factor Negative Negative 6 finding Blocking AB Laboratory test 07/11/2013 Hemoglobin A1c 6.4 % High 4.1-5.7 finding (Fma/CMC,CX) Laboratory test 07/11/2013 Folate Level 15.80 ng/mL 3.00-16.00 7 finding Ferritin 135 ng/mL 22-415 Vitamin B-12 120 pg/mL Low 230-1050 8 TSH 2.45 mIU/L 0.50-6.00 Iron & Iron Binding Capacity 07/11/2013 Iron 90 g/dL 50-212 Unsaturated Iron Binding 217 g/dL Total Iron Binding Capacity 307 g/dL 250-450 % Iron Saturation 29 % 15-55 Comprehensive Metabolic Prof 03/08/2013 Albumin 4.6 g/dL 3.8-5.5 Alk. Phos. 60 U/L 22-95 Alt (SGPT) 19 U/L 10-40 Ast (Sgot) 22 U/L 5-34 BUN 17 mg/dL 6-26 Calcium 9.5 mg/dL 8.6-10.2 Chloride 100 mEq/L 94-112 Creatinine 1.0 mg/dL 0.6-1.4 Carbon Dioxide 26 mEq/L 21-32 Glucose 107 mg/dL High 70-105 9 Sodium 139 mEq/L 134-149 Total Bilirubin 1.3 mg/dL 0.2-1.3 Total Protein 7.5 g/dL 6.3-8.1 Potassium 4.4 mEq/L 3.6-5.5 Globulin 2.9 g/dL 2.0-4.8 A/G Ratio 1.6 Calc 0.6-2.3 BUN/Creat Ratio 17.5 Calc 8.0-36.0 Lipid Profile 03/08/2013 Cholesterol 181 mg/dL 120-200 HDL 45 mg/dL 30-70 Triglycerides 65 mg/dL 30-200 HDL Risk Factor 4.1 CALC 0.0-4.4 LDL (Calculated) 124 CALC 0-129 VLDL (Calculated) 13 mg/dL 0-50 Laboratory test 03/08/2013 Hemoglobin A1c 6.2 % High 4.1-5.7 finding (Fma/CMC,CX) Laboratory test 01/23/2013 Blood Urea Nitrogen 12 mg/dL 6-24 finding Creatinine 01/23/2013 Creatinine 0.90 mg/dL 0.50-1.40 Egfr Non- 81.4 >60 Egfr 104.7 >60 10 Laboratory test finding 01/23/2013 PSA Diagnostic 1.85 ng/mL 0-4.0 11 Laboratory test finding 2012 Hemoglobin A1c 6.3 % High 4.1-5.7 (Fma/CMC,CX) Comprehensive Metabolic 04/08/2012 Albumin 4.5 g/dL 3.8-5.5 Prof Alk. Phos. 55 U/L 22-95 Alt (SGPT) 35 U/L 10-40 Ast (Sgot) 38 U/L High 5-34 12 BUN 12 mg/dL 6-26 Calcium 9.2 mg/dL 8.6-10.2 Chloride 105 mEq/L 94-112 Creatinine 0.9 mg/dL 0.6-1.4 Carbon Dioxide 25 mEq/L 21-32 Glucose 123 mg/dL High 70-105 Sodium 141 mEq/L 134-149 Total Bilirubin 1.0 mg/dL 0.2-1.3 Total Protein 7.5 g/dL 6.3-8.1 Potassium 4.1 mEq/L 3.6-5.5 Globulin 3.1 g/dL 2.0-4.8 A/G Ratio 1.5 Calc 0.6-2.2 BUN/Creat Ratio 13.8 Calc 8.0-36.0 Lipid Profile 04/08/2012 Cholesterol 243 mg/dL High 120-200 HDL 49 mg/dL 30-70 Triglycerides 126 mg/dL 30-200 HDL Risk Factor 5.0 CALC High 0.0-4.4 LDL (Calculated) 169 CALC High 0-129 VLDL (Calculated) 25 mg/dL 0-50 Laboratory test finding 04/08/2012 Hemoglobin A1c 6.1% % High 4.1-5.7 (Fma/CMC,CX) Laboratory test finding 12/24/2011 BUN 15 mg/dL 6-24 PSA,Diagnostic 2.38 NG/ML 0-4 13 CBC Electronic (a) 10/06/2011 WBC 6.1 3.6-9.6 RBC 4.84 3.90-5.70 Hemoglobin (Fma/CMC/CTX) 14.8 g/dL 12.1 - 17.2 Hematocrit (Fma/CMC/CTX) 45.3 % 36.1 - 50.3 Platelets 288 10^3/ul 150-400 Lymph% 39.5 20.5-51.1 Mixed% 10.0 Neutrophils % 50.5 Mean Corpuscular Vol 93 82.2-97.4 Mean Corpuscular Hemoglobin 30.6 27.6-33.3 Mean Corpuscular Hemo Concen 32.8 32.0-36.0 RDW 12.0 11.6-13.7 Mean Platelet Volume 8.1 6.5-11.0 Laboratory test 10/06/2011 Hemoglobin A1c 6.3 % High 4.1-5.7 finding (Fma/CMC,CX) Laboratory test 10/06/2011 PSA 2.00 ng/mL 0.00-4.00 finding Lipid Profile 10/06/2011 Cholesterol 239 mg/dL High 120-200 HDL 48 mg/dL 30-70 Triglycerides 117 mg/dL 30-200 HDL Risk Factor 5.0 CALC High 0.0-4.0 LDL (Calculated) 168 CALC High 0-129 VLDL (Calculated) 23 mg/dL 0-50 Comprehensive Metabolic Prof 10/06/2011 Albumin 4.5 g/dL 3.8-5.5 Alk. Phos. 51 U/L 22-95 Alt (SGPT) 26 U/L 10-40 Ast (Sgot) 27 U/L 5-34 BUN 11 mg/dL 6-26 Calcium 9.6 mg/dL 8.6-10.2 Chloride 104 mEq/L 94-112 Creatinine 1.0 mg/dL 0.6-1.4 Carbon Dioxide 24 mEq/L 21-32 Glucose 120 mg/dL High 70-105 Sodium 139 mEq/L 134-149 Total Bilirubin 1.2 mg/dL 0.2-1.3 Total Protein 7.5 g/dL 6.3-8.1 Potassium 4.2 mEq/L 3.6-5.5 Globulin 3.0 g/dL 2.0-4.8 A/G Ratio 1.5 Calc 0.6-2.2 BUN/Creat Ratio 11.6 Calc 8.0-36.0 Ua - Non Micro (Fma) 10/06/2011 Appearance CLEAR Color YELLOW Glucose, Urine (Fma/CMC/CTX) NEG Bilirubin NEG Ketones NEG SP Grav 1.010 Blood NEG PH 7.0 Protein NEG Urobil 1.0 Nitrite NEG Leukocytes (a/[facility]) NEG Laboratory test finding 10/06/2011 TSH 1.18 mIU/L 0.50-6.00 Basic Metabolic Profile 02/04/2011 BUN 16 mg/dL 6-26 Calcium 9.6 mg/dL 8.6-10.2 Chloride 104 mEq/L 94-112 Creatinine 1.1 mg/dL 0.6-1.4 Carbon Dioxide 23 mEq/L 21-32 Glucose 212 mg/dL High 70-105 14 Sodium 140 mEq/L 134-149 Potassium 3.7 mEq/L 3.6-5.5 BUN/Creat Ratio 14.5 Calc 8.0-36.0 Ebv Acute Infection Abs 12/16/2010 Ebv Ab Vca, IgM <0.2 AI 0.0-0.8 15, 16 Ebv Early Antigen Ab, IgG 0.5 AI 0.0-0.8 15, 17 Ebv Ab Vca, IgG >8.0 AI High 0.0-0.8 15, 18 Ebv Nuclear Antigen Ab, IgG 8.0 AI High 0.0-0.8 15, 19 Interpretation: SEE NOTE 15, 20 CBC W/Manual Diff 12/16/2010 WBC 4.9 x10E3/uL 4.3-10.9 15 RBC 4.45 x10E6/uL Low 4.70-6.20 15 Hemoglobin 13.8 g/dL 13.0-17.0 15 Hematocrit 40.5 % 39.0-50.0 15 MCV 91.0 fl 82.0-98.0 15 MCH 31.0 pg 27.5-33.5 15 MCHC 34.1 g/dL 32.0-36.0 15 RDW 12.9 % 11.5-14.5 15 Platelet Count 256 x10E3/uL 130-400 15 MPV 11.3 fl High 6.5-10.5 15 Manual Differential PERFORMED 15 Feflex Diff+Morph For CBC4D 12/16/2010 Segmented Neutrophils 44.0 % 44.0- 74.0 15 Band 0.0 % 0.0-4.0 15 Lymphocytes 39.0 % 15.0-45.0 15 Monocytes 14.0 % High 2.0-13.0 15 Eosinophils 3.0 % 0.0-6.0 15 Basophils 0.0 % 0.0-2.0 15 Neutrophil Absolute 2.2 x10E3/uL 1.4-7.0 15 Lymphocytes Absolute 1.9 x10E3/uL 1.0-3.4 15 Monocyte Absolute 0.7 x10E3/uL 0.2-1.0 15 Eosinophil Absolute 0.1 x10E3/uL 0.0-0.5 15 Basophil Absolute 0.0 x10E3/uL 0.0-0.2 15 Laboratory test finding 12/16/2010 Throat - Beta Strep Fma NEG@48HRS Quickstrep NEG Negative Laboratory test 10/09/2010 PSA,Diagnostic 1.62 NG/ML 0-4 21 finding Laboratory test 09/15/2010 TSH 1.60 mIU/L 0.50-6.00 finding Laboratory test 09/15/2010 Hemoglobin A1c 6.3 % High 4.1-5.7 finding (Fma/CMC,CX) CBCM-Fma 05/27/2010 WBC 6.2 3.6-9.6 RBC 4.52 3.90-5.70 Hemoglobin (Fma/CMC/CTX) 14.2 g/dL 12.1 - 17.2 Hematocrit (Fma/CMC/CTX) 41.9 % 36.1 - 50.3 Mean Corpuscular Vol 93 82.2-97.4 Mean Corpuscular Hemoglobin 31.3 27.6-33.3 Mean Corpuscular Hemo Concen 33.8 32.0-36.0 Platelets 253 10^3/ul 150-400 RDW 12.1 11.6-13.7 Mean Platelet Volume 8.1 6.5-11.0 Neutrophil 51 Band 3 Lymphocytes 28 Monocyte 2 Eosinophils 4 Basophils 1 Atypical Lymph 11 Z#Comment rbc/plt normal Laboratory test finding 05/26/2010 Quickstrep negative Negative Throat - Beta Strep Fma NEG @ 48 HRS Monospot (Fma/Centrex) NEGATIVE Hepatic 05/19/2010 Albumin 4.3 g/dL 3.8-5.5 Alk. Phos. 46 U/L -95 Alt (SGPT) 15 U/L 10-40 Ast (Sgot) 17 U/L 5-34 Total Bilirubin 0.5 mg/dL 0.2-1.3 Total Protein 7.1 g/dL 6.3-8.1 Direct Bilirubin 0.2 mg/dL 0.0-0.6 Globulin 2.8 g/dL 2.0-4.8 A/G Ratio 1.6 Calc 0.6-2.2 Indirect Bilirubin 0.30 0.10-1.00 Laboratory test finding 04/23/2010 Hemoglobin A1c 6.0 % High 4.1-5.7 (Fma/CMC,CX) Comprehensive Metabolic 01/13/2010 Albumin 4.8 g/dL 3.8-5.5 Prof Alk. Phos. 51 U/L 22-95 Alt (SGPT) 41 U/L High 10-40 22 Ast (Sgot) 36 U/L High 5-34 BUN 13 mg/dL 6-26 Calcium 9.4 mg/dL 8.6-10.2 Chloride 100 mEq/L 94-112 Creatinine 1.0 mg/dL 0.6-1.4 Carbon Dioxide 24 mEq/L 21-32 Glucose 103 mg/dL 70-105 Sodium 141 mEq/L 134-149 Total Bilirubin 1.3 mg/dL 0.2-1.3 Total Protein 7.8 g/dL 6.3-8.1 Potassium 4.2 mEq/L 3.6-5.5 Globulin 3.0 g/dL 2.0-4.8 A/G Ratio 1.6 Calc 0.6-2.2 BUN/Creat Ratio 12.6 Calc 8.0-36.0 Lipid Profile 01/13/2010 Cholesterol 202 mg/dL High 120-200 HDL 40 mg/dL 30-70 Triglycerides 196 mg/dL 30-200 HDL Risk Factor 5.0 CALC 4.2-7.0 LDL (Calculated) 122 CALC 0-129 VLDL (Calculated) 39 mg/dL 0-50 Laboratory test 01/13/2010 Hemoglobin A1c 6.2 % High 4.1-5.7 finding (a/[facility],CX) Laboratory test 08/28/2009 Hemoglobin A1c 6.5 % High 4.1-5.7 finding ([facility],CX) Laboratory test 08/28/2009 PSA 1.40 ng/mL 0.00-4.00 finding Laboratory test 07/08/2009 Hemoglobin A1c 6.8 % High 4.1-5.7 finding (a/[facility],CX) Lipid Profile 06/17/2009 Cholesterol 201 mg/dL High 120-200 HDL 45 mg/dL 30-70 Triglycerides 175 mg/dL 30-200 HDL Risk Factor 4.5 CALC 4.2-7.0 LDL (Calculated) 121 CALC 0-129 VLDL (Calculated) 35 mg/dL 0-50 Comprehensive Metabolic Prof 06/17/2009 Albumin 4.8 g/dL 3.8-5.5 Alk. Phos. 45 U/L 22-95 Alt (SGPT) 40 U/L 10-40 Ast (Sgot) 33 U/L 5-34 BUN 14 mg/dL 6-26 Calcium 10.1 mg/dL 8.6-10.2 Chloride 103 mEq/L 94-112 Creatinine 0.9 mg/dL 0.6-1.4 Carbon Dioxide 25 mEq/L 21-32 Glucose 127 mg/dL High 70-105 Sodium 143 mEq/L 134-149 Total Bilirubin 0.3 mg/dL 0.2-1.3 Total Protein 7.2 g/dL 6.3-8.1 Potassium 4.6 mEq/L 3.6-5.5 Globulin 2.4 g/dL 2.0-4.8 A/G Ratio 2.0 Calc 0.6-2.2 BUN/Creat Ratio 15.3 Calc 8.0-36.0 CBC (Fma) 06/17/2009 WBC 4.8 3.6-9.6 RBC 4.54 3.90-5.70 Hemoglobin (Fma/CMC/CTX) 14.4 g/dL 12.1 - 17.2 Hematocrit (Fma/CMC/CTX) 43.1 % 36.1 - 50.3 Mean Corpuscular Vol 94.9 82.2-97.4 Mean Corpuscular Hemaglobin 31.7 27.6-33.3 Mean Corpuscular Hemo Concen 33.4 33.0-36.0 Platelets 267 10^3/ul 150-400 Lymph% 39.0 20.5-51.1 Mixed% 19.7 Neutrophils % 41.3 RDW 13.2 11.6-13.7 Mean Platelet Volume 11.0 High 7.4-10.4 1 RESULTS VERIFIED BY REPEAT ANALYSIS 2 NON-FASTING 3 FASTING 4 consistent w/ previous results 5 FASTING 6 Positive in 50% of persons with pernicious anemia. Test Performed by: [place] [address] Maintenance Trainer: Ethan Wilder III, M.D. 7 FASTING 8 RESULTS VERIFIED BY REPEAT ANALYSIS 9 result [email or web address] 10 Because ethnic data is not always readily available, this report includes an eGFR for both -Americans and non- Americans. The National Kidney Disease Education Program (NKDEP) does not endorse the use of the MDRD equation for patients that are not between the ages of 18 and 70, are , have extremes of body size, muscle mass, or nutritional status, or are non- or non-. According to the National Kidney Foundation, irrespective of diagnosis, the stage of the disease is based on the level of kidney function: Stage Description GFR(mL/min/1.73 m(2)) 1 Kidney damage with normal or decreased GFR 90 2 Kidney damage with mild decrease in GFR 60-89 3 Moderate decrease in GFR 30-59 4 Severe decrease in GFR 15-29 5 Kidney failure <15 (or dialysis) 11 Serum levels of PSA measured using the Deirdre Angelica DXI Hybritech immunoassay should not be interpreted as absolute evidence of the presence or absence of disease. The PSA value should be used in conjunction with other pertinent clinical diagnostic procedures. The values obtained with different assay methods or kits cannot be used interchangeably. 12 result rechecked 13 * SERUM LEVELS OF PSA MEASURED USING THE DEIRDRE ANGELICA ACCESS HYBRITECH IMMUNOASSAY SHOULD NOT BE INTERPRETED ABSOLUTE EVIDENCE OF THE PRESENCE OR ABSENCE OF DISEASE. THE PSA VALUE SHOULD BE USED IN CONJUNCTION WITH OTHER PERTINENT CLINICAL DIAGNOSTIC PROCEDURES. The values obtained with different assay methods or kits cannot be used interchangeably. 14 RESULT KARISSA'D 15 1 SST; 1 LAV 16 Negative <0.9 Equivocal 0.9 - 1.0 Positive >1.0 17 Negative <0.9 Equivocal 0.9 - 1.0 Positive >1.0 18 Negative <0.9 Equivocal 0.9 - 1.0 Positive >1.0 19 Negative <0.9 Equivocal 0.9 - 1.0 Positive >1.0 20 EBV Interpretation Chart . Interpretation VCA-IgM EA-IgG VCA-IgG NA-ABS . Susceptible - - - - Acute Infection + +or- +or- - Convalescent Phase +or- +or- + + Chronic or Reactivated - + + +or- Old Infection - - +or- + + Antibody Present - Antibody Absent 21 * SERUM LEVELS OF PSA MEASURED USING THE DEIRDRE ANGELICA ACCESS HYBRITECH IMMUNOASSAY SHOULD NOT BE INTERPRETED ABSOLUTE EVIDENCE OF THE PRESENCE OR ABSENCE OF DISEASE. THE PSA VALUE SHOULD BE USED IN CONJUNCTION WITH OTHER PERTINENT CLINICAL DIAGNOSTIC PROCEDURES. 22 RESULT RECHECKED Procedures Date CPT Code Description Status Comment 08/24/2017 34837 Injection Subcutaneous Or Completed Intramuscular 09/12/2016 Diabetic Retinal Eye Exam Completed Dr Gary 07/13/2016 39967 CPHL SHQ Completed 06/05/2015 15857 Pulse Oximetry Completed 04/09/2015 73727 Pulse Oximetry Completed 01/03/2015 87725 Kerrie-Noninvasive physiologic Completed studies of upper or lower extremity 03/28/2014 52865 Pulse Oximetry Completed 2012 64296 Finger Or Heel Stick Completed 07/20/2012 79314 Pulse Oximetry Completed 10/06/2011 88293 Electrocardiogram Complete Completed 05/03/2008 Colonoscopy Completed No further testing per Dr Maldonado Encounters Type Date Location Provider CPT E/M Dx Office Visit 07/24/2017 12:30p [facility] Enrique Espinoza M.D. 96276 Z71.2 Office Visit 07/13/2017 9:00a [facility] Enrique Espinoza M.D. 80074 E11.9 I10 E78.2 Office Visit 05/06/2017 11:00a [facility] [place] [facility] 31351 J01.90 Office Visit 02/24/2017 9:45a [facility] Latonia Mccullough [facility] 98424 R09.81 R42 Office Visit 01/13/2017 9:20a [facility] Enrique Espinoza M.D. 55785 E11.9 I10 E78.2 Z23 Office Visit 06/05/2016 11:30a Main Office [place] [facility] 60090 J06.9 Office Visit 05/02/2016 10:30a Main Office PHILL HensonP 43349 R05 E11.9 E78.00 Z12.5 R31.29 Office Visit 07/09/2015 1:40p [facility] Office Ryan Duenas M.D. 33822 J32.8 Office Visit 06/24/2015 3:45p [facility] Office Amaris CastroSantosh nichols 39414 J06.9 J30.9 Office Visit 06/05/2015 8:00a [facility] Office Enrique Espinoza M.D. 79284 J00 Office Visit 04/09/2015 11:20a [facility] Office Enrique Espinoza M.D. 76241 J06.9 Office Visit 01/03/2015 9:30a [facility] Enrique Espinoza M.D. 33472 782.3 Office Visit 12/25/2014 11:00a [facility] Office Enrique Espinoza M.D. 22915 782.3 401.9 250.00 272.0 428.32 599.72 Office Visit 12/17/2014 3:10p Main Office Ryan Duenas M.D. 60718 250.00 782.3 Office Visit 07/09/2014 9:00a [facility] Office Latonia Mccullough [facility] 93893 780.79 477.9 250.00 401.9 V76.44 Office Visit 03/28/2014 3:40p [facility] Enrique Espinoza M.D. 54437 460 Office Visit 12/21/2013 5:45p [facility] Office Enrique Espinoza M.D. 62378 241.0 Office Visit 11/16/2013 1:40p [facility] Office Enrique Espinoza M.D. 81182 250.00 401.9 493.90 272.0 281.1 477.9 784.2 Office Visit 08/29/2013 10:40a [facility] Alejandro Ventura M.D. 57305 461.0 477.8 Office Visit 08/10/2013 9:30a [facility] Office Alejandro Ventura M.D. 92090 281.1 Office Visit 08/08/2013 9:30a [facility] Office Alejandro Ventura M.D. 31098 465.9 Office Visit 07/11/2013 8:50a [facility] Office Alejandro Ventura M.D. 41621 250.00 401.9 493.90 477.9 272.0 333.94 Office Visit 03/08/2013 9:30a [facility] Office Alejandro Ventura M.D. 11780 250.00 401.9 493.90 477.9 272.0 Office Visit 02/15/2013 9:45a [facility] Office Erika Dukes, [facility] 07642 E885.9 844.8 Office Visit 2012 10:20a [facility] Office Alejandro Ventura M.D. 45155 250.00 401.9 493.90 477.9 272.0 Office Visit 07/29/2012 10:30a [facility] Office Latonia Villatorobhart, [facility] 81737 727.03 Office Visit 07/20/2012 11:00a [facility] Office Alejandro Ventura M.D. 70965 465.9 250.00 401.9 493.90 Office Visit 04/08/2012 8:30a [facility] Office Alejandro Ventura M.D. 22557 250.00 401.9 493.90 477.9 272.0 Office Visit 10/19/2011 3:30p [facility] Alejandro Ventura M.D. 85662 461.0 Office Visit 10/06/2011 9:00a [facility] Office Alejandro Ventura M.D. 67444 V70.0 V76.44 401.9 250.00 493.90 709.9 V06.5 V03.82 427.60 Office Visit 02/04/2011 8:20a [facility] Office Alejandro Ventura M.D. 65834 401.9 477.9 Office Visit 01/20/2011 8:20a [facility] Office Alejandro Ventura M.D. 80247 461.1 477.9 401.9 Office Visit 12/16/2010 2:00p [facility] Office Alejandro Ventura M.D. 11576 462 Office Visit 12/01/2010 3:30p [facility] Office Alejandro Ventura M.D. 36488 782.3 401.9 250.00 493.90 Office Visit 09/15/2010 1:40p [facility] Office Alejandro Ventura M.D. 93629 465.9 477.9 401.9 250.00 493.90 780.79 Office Visit 07/19/2010 11:00a [facility] Office Honey [place] 43320 719.44 Office Visit 05/26/2010 11:00a [facility] Office Alejandro Ventura M.D. 87386 465.9 250.00 401.9 493.90 Office Visit 05/19/2010 2:30p [facility] Office Alejandro Ventura M.D. 28992 465.9 272.4 250.00 401.9 493.90 Office Visit 04/23/2010 3:20p [facility] Office Alejandro Ventura M.D. 28010 250.00 401.9 493.90 300.00 272.4 Office Visit 03/29/2010 10:30a Main Office Santosh Mtz 40818 465.9 250.00 493.90 Office Visit 01/13/2010 8:00a [facility] Office Alejandro Ventura M.D. 97605 250.00 401.9 780.50 Office Visit 09/19/2009 11:20a Main Office Alejandro Ventura M.D. 97532 461.0 Office Visit 08/28/2009 8:00a [facility] Office Alejandro Ventura M.D. 33653 401.9 250.00 493.90 599.70 Office Visit 07/24/2009 9:00a [facility] Office [place] [facility] 27498 250.00 Office Visit 07/22/2009 8:00a [facility] Office Alejandro Ventura M.D. 94179 461.0 401.9 493.90 709.9 250.00 272.4 Office Visit 07/15/2009 11:30a [facility] Office Alejandro Ventura M.D. 44078 709.9 Office Visit 07/08/2009 8:20a [facility] Office Alejandro Ventura M.D. 72879 401.9 272.4 493.90 780.57 790.21 Office Visit 06/01/2009 10:20a [facility] Office Aj Bauer M.D. 95608 465.9 493.90 466.0 Office Visit 05/23/2009 8:50a [facility] Office Aj Bauer M.D. 41321 465.9 401.9 493.90 Office Visit 05/14/2009 9:00a [facility] Office Ryan Duenas M.D. 61950 782.1 Office Visit 04/23/2009 9:15a [facility] Office Wood MtzC 79125 493.90 401.9 272.4 780.57 Plan of Care Future Appointment(s):01/04/2018 9:00 am - Enrique Espinoza M.D. at [facility] [id number]/09/2017 - Arabella Mtz-[id number] Acute upper respiratory infection, [id number] Allergic rhinitis, unspecifiedAllComments:~B_~U_ Medication Management~b_~u_ Patient Understands medications he's taking? Yes No Are there Barriers to Adherence? Yes No Has the patient been asked about herbal supplements and therapies, and OTC meds? Yes No ~B_~U_Care Plan~b_~u_1. Patient has been queried about patient's goals/ preferences and functional/lifestyle goals at relevant visits. If relevant, describe: na2. Treatment goals as explained to the patient: abovesx resolution 3. Are there barriers to meeting treatment goals? Yes No If Yes, please describe:4. Self-Management goals as described tothe patient: Yes No this looks like a viral uri on top of your allergies rest , adequate fluid intake , gargles , vapor call if your sx worsen or persist >10-14 days
[2017-11-18 08:39] VITALS: BP 158/92
--- NOTE | 2017-11-18 10:00 | UC ---
Lower Extremity/Ankle HPI - HPI Summary HPI Summary: Shelbie Lamas, scribed for attending Radha Mcintyre MD. Pt is an 82 y/o M who presents to [facility] accompanied by his c/o bilateral foot swelling, L more significantly than R, for 1 month. Swelling was worse last night and improved this morning. On triage, associated pain is ranked 6/10 though on examination pt denies any pain. Pt's primary concern and reason for visit today is the swelling, particularly on the left side. Additionally notes tingling in the L foot last night. Denies ankle and calf pain. reports that he has been spending significant time sitting recently. Prior similar episodes of symptoms. Has been following up consistently with his forming acid dumper, last visit being yesterday during which he had tight wraps applied which were removed PERFORATOR. Is flying to [place] tomorrow where he will be for 3 days s wanted to be checked. Has been on Prednisone for a few days to treat sinus symptoms. Patient does not have a history of cardiac disease, congestive heart failure, or renal disease. Denies SOB, CP Patient medications and allergies reviewed this visit. - History of Current Complaint Chief Complaint: UCLowerExtremity Stated Complaint: FOOT PAIN Time Seen by Provider: 11/18/17 09:53 Hx Obtained From: Patient Onset/Duration: Lasting Days - 3 days, Still Present Severity Initially: Moderate - 6/10 on triage Severity Currently: None Pain Intensity: 6 - On triage, currently none present Pain Scale Used: 0-10 Numeric Aggravating Factor(s): Other - Sitting frequently Alleviating Factor(s): Other - Wraps applied by forming acid dumper Able to Bear Weight: Yes - Allergies/Home Medications Allergies/Adverse Reactions: Allergies Allergy/AdvReac Type Severity Reaction Status Date / Time SHRIMP,CRAB, LOBSTER Allergy Severe Anaphylatic Uncoded 11/18/17 08:39 Shock cats Allergy Itching Uncoded 11/18/17 08:39 Home Medications: Home Medications predniSONE TAB* [Deltasone 20 MG TAB*] 40 mg PO DAILY 11/18/17 [History Confirmed 11/18/17] PMH/Surg Hx/FS Hx/Imm Hx - Additional Past Medical History Additional PMH: NEGATIVE PMHx: Renal failure, CAD Endocrine History: Diabetes Cardiovascular History: Hypertension Respiratory History: Asthma, Other Other Respiratory History: Seasonal allergies - Surgical History Surgical History: Yes Surgery Procedure, Year, and Place: 02/06 ESOPHAGEAL REMOVAL OF FOREIGN BODY AT [facility] [place]. 12/09 MICROLARYNGOSCOPY AT [facility] [place]. 1991 RT KNEE SURGERY 1992 AT [facility] [place]. 10/04 RT SHOULDER RCT SURGERY AT [facility] [place]. VASECTOMY. LEFT HAND TRIGGER FINGER SURGERY - Family History Known Family History: Positive: Cardiac Disease, Hypertension - Social History Occupation: Retired Lives: With Family Alcohol Use: Occasionally Substance Use Type: None Smoking Status (MU): Former Smoker Review of Systems Constitutional: Negative Skin: Other - Bilateral foot swelling with pain, L>R Eyes: Negative ENT: Negative Respiratory: Negative Cardiovascular: Negative Gastrointestinal: Negative Genitourinary: Negative Motor: Negative Neurovascular: Negative Musculoskeletal: Negative Neurological: Paresthesia - Tingling in the L foot Psychological: Negative All Other Systems Reviewed And Are Negative: Yes - Comments Additional Review of Systems Comments: NEGATIVE: Ankle and calf pain Physical Exam - Summary Physical Exam Summary: Vital Signs Reviewed: Yes A+Ox3, no distress Eyes: Conjunctiva Clear ENT: Hearing grossly normal neck: supple Respiratory: Positive: No respiratory distress, No accessory muscle use Cardiovascular: skin color reflect adequate perfusion CBT < 2 sec pt with 2+ edema b/l feet and left LE 1+ at knee No crepitus 1+ PT, foot warm no stasis ulcers Musculoskeletal Exam: MACEDO x 4 without difficulty full flex/ext knee, ankle, great toe Neurological: Positive: Alert, ambulatory without difficulty Psychological: Positive: Normal Response To Family Skin: Positive: no rash, no ecchymosis no stasis ulcers, open wound Triage Information Reviewed: Yes Vital Signs: Initial Vital Signs Temp 98.4 F 11/18/17 08:35 Pulse 83 11/18/17 08:35 Resp 12 11/18/17 08:35 BP 158/92 11/18/17 08:35 Pulse Ox 99 11/18/17 08:35 Diagnostics - Radiology Venous Doppler Xray Interpretation: No Acute Changes - NO LEFT LOWER EXTREMITY DEEP VEIN THROMBOSIS. Physician reviewed this report. Radiology Interpretation Completed By: Radiologist Re-Evaluation - Re-Evaluation First Eval Comment: Reviewed imaging with patient. No DVT Will discharge after BMP drawn. Legs elevated. Return precautions. Patient comfortable in agreement with plan Lower Extremity Course/Dx - Course Course Of Treatment: Blood pressure noted and patient informed to follow up with PCP. Patient medications and allergies reviewed this visit. Patient with ongoing edema in his bilateral legs. Left worse than right. Patient seen by a forming acid dumper yesterday as he does routinely. Plantars put a wrap on his left foot. Per , left foot got much more swollen last night. Patient took off [place] swelling is improved. Patient scheduled to go out of town tomorrow morning to get checked. Patient with edema more on the left than the right lower night. We'll do an ultrasound to rule out a DVT. We'll check a BNP to evaluate kidney function. Recommend patient to contact PCP today for follow-up next week. If DVT noted on imaging Will start anticoagulation and speech primary. Patient both comfortable in agreement with plan. Discussed with patient low-salt diet. Discussed with patient like elevation. Discussed with patient if he develops chest pain or shortness of breath or inability to urinate or feels that the swelling is getting worse up his legs he should be seen more emergently. Patient and comfortable with plan - Differential Dx/Diagnosis Provider Diagnoses: leg edema Discharge - Sign-Out/Discharge Documenting (check all that apply): Patient Departure - Discharge - Discharge Plan Condition: Stable Disposition: HOME Patient Education Materials: Leg Edema (ED) Referrals: Enrique Espinoza MD [Primary Care Provider] - (Call today to schedule a follow up for next week upon return from [place]. ) Additional Instructions: - Taken medications as prescribed by her primary care provider - Elevate her legs as much as possible to help with swelling and pain. Get up once and hour and walk a short distance to promote good blood flow in your legs - You have blood work drawn today. His lab work will take a couple days to return. You can review it with your primary care provider at a follow-up appointment next week - Contact your primary care provider today to schedule a follow-up appointment next week - If you have increased pain, swelling, reddness, shortness of breath or any other concerns it is recommended you seek medical evaluation - Billing Disposition and Condition Condition: STABLE Disposition: Home
--- NOTE | 2017-11-18 10:48 | RAD ---
HISTORY: edema, ? DVT COMPARISONS: February 26, 2009 TECHNIQUE: Multiple transverse and longitudinal ultrasound images were obtained of the left lower extremity from the level of the common femoral vein inferiorly through to the infrapopliteal veins using grayscale, color Doppler, and spectral Doppler imaging with and without compression and with augmentation. Comparison images were obtained of the contralateral common femoral vein. FINDINGS: VEINS: The venous system of the left lower extremity is compressible throughout its course, with normal flow on color Doppler imaging and normal response to augmentation on spectral Doppler imaging. SOFT TISSUES: Unremarkable. OTHER FINDINGS: None. IMPRESSION: NO LEFT LOWER EXTREMITY DEEP VEIN THROMBOSIS
[2017-11-18 16:35] LABS: EGFR Non-African American 74.6 (>60)
== END 2017-11-18 11:15 | disposition home or self-care (01) ==
LOC: UCEAST 08:22
DX: R60.0 Localized edema (principal); J45.909 Unspecified asthma, uncomplicated; E11.9 Type 2 diabetes mellitus without complications; I10 Essential (primary) hypertension; Z79.899 Other long term (current) drug therapy; Z91.013 Allergy to seafood; Z91.09 Other allergy status, other than to drugs and biological substances; Z87.891 Personal history of nicotine dependence
CPT/HCPCS: 36415; 80048; 99211; G0463

== ENCOUNTER 2018-09-28 17:30 | Emergency (ER) | payer OTHER ==
[2018-09-28 17:51] VITALS: BP 155/87
--- NOTE | 2018-09-28 18:25 | UC ---
Respiratory Complaint HPI - HPI Summary HPI Summary: STARTED YESTERDAY WITH INCREASED POSTNASAL DRAINAGE AND SOME FATIGUE. HE DENIES ANY COUGH, SORE THROAT, EAR PAIN, FEVER. NO NAUSEA/VOMITING. HAS A LITTLE MUSCLE ACHINESS. IS SUPPOSED TO BE TRAVELING TO [facility] [place] IN 3 DAYS SO DECIDED TO BE EVALUATED TODAY. HE DOES HAVE A HISTORY OF ALLERGIES AND TAKES ALLERGY MEDICINE DAILY. HE ALSO RECEIVES ALLERGY INJECTIONS. - History of Current Complaint Chief Complaint: UCRespiratory Stated Complaint: CHILLS, SINUS CONGESTION Time Seen by Provider: 09/28/18 18:02 Hx Obtained From: Patient Onset/Duration: Gradual Onset, Lasting Days - 1 DAY, Still Present Timing: Constant Severity Initially: Mild Severity Currently: Mild Pain Intensity: 4 Pain Scale Used: 0-10 Numeric Aggravating Factors: Nothing Alleviating Factors: Nothing Associated Signs And Symptoms: Negative: Dyspnea, Fever, Chills, Wheezing, URI, Nasal Congestion - Allergies/Home Medications Allergies/Adverse Reactions: Allergies Allergy/AdvReac Type Severity Reaction Status Date / Time shellfish derived Allergy Severe Anaphylatic Verified 09/28/18 17:51 Shock SHRIMP,CRAB, LOBSTER Allergy Severe Anaphylatic Uncoded 09/28/18 17:51 Shock cats Allergy Itching Uncoded 09/28/18 17:51 Home Medications: Home Medications Losartan Potassium [Cozaar] 50 mg PO DAILY 09/28/18 [History Confirmed 09/28/18] Montelukast Sodium TAB* [Singulair 10 MG TAB*] 10 mg PO DAILY 09/28/18 [History Confirmed 09/28/18] Rosuvastatin Calcium 5 mg PO DAILY 09/28/18 [History Confirmed 09/28/18] PMH/Surg Hx/FS Hx/Imm Hx - Additional Past Medical History Additional PMH: ALLERGIES Endocrine History: Diabetes - NO MEDS, Dyslipidemia Cardiovascular History: Hypertension - Surgical History Surgical History: Yes Surgery Procedure, Year, and Place: 02/06 [place]OP[place] [facility] [place] [facility] [place] K[place] [facility] [place] SHOULDER [place] [facility] [place]. LEFT HAND TRIGGER FINGER SURGERY - Family History Known Family History: Positive: Cardiac Disease, Hypertension - Social History Alcohol Use: Occasionally Substance Use Type: None Smoking Status (MU): Former Smoker Review of Systems All Other Systems Reviewed And Are Negative: Yes Constitutional: Positive: Fatigue ENT: Positive: Other - POST NASAL DRAINAGE Respiratory: Positive: Negative Cardiovascular: Positive: Negative Gastrointestinal: Positive: Negative Physical Exam Triage Information Reviewed: Yes Appearance: Well-Appearing, No Pain Distress, Well-Nourished Vital Signs: Initial Vital Signs Temp 97.8 F 09/28/18 17:44 Pulse 82 09/28/18 17:44 Resp 16 09/28/18 17:44 BP 155/87 09/28/18 17:44 Pulse Ox 98 09/28/18 17:44 Vital Signs Reviewed: Yes Eyes: Positive: Conjunctiva Clear ENT: Positive: Hearing grossly normal, Pharynx normal, TMs normal. Negative: Nasal congestion, Nasal drainage Neck: Positive: Supple, Nontender, No Lymphadenopathy Respiratory Exam: Normal Cardiovascular Exam: Normal Abdomen Description: Positive: Soft Musculoskeletal: Positive: No Edema Neurological: Positive: Alert Psychological: Positive: Age Appropriate Behavior Skin: Negative: Rashes Respiratory Course/Dx - Course Course Of Treatment: PATIENT'S PRESENTATION IS MUCH MORE CONSISTENT WITH ALLERGICALLY MEDIATED CONDITION THAN SOMETHING INFECTIOUS. HAVE ADVISED HE CONTINUE HIS ALLERGY MEDICATIONS DAILY. WILL ADD PREDNISONE FOR A FEW DAYS TO SEE IF THIS HELPS. NO INDICATION FOR ANTIBIOTICS AT PRESENT BUT GIVEN HIS AGE WOULD HAVE A LOW THRESHOLD FOR TREATING IF HIS SYMPTOMS DO NOT IMPROVE OR WORSEN. - Differential Dx/Diagnosis Provider Diagnosis: Environmental allergies Discharge - Sign-Out/Discharge Documenting (check all that apply): Patient Departure All imaging exams completed and their final reports reviewed: No Studies - Discharge Plan Condition: Stable Disposition: HOME Prescriptions: predniSONE TAB* [Deltasone 20 MG TAB*] 40 mg PO DAILY #10 tab Patient Education Materials: General Allergic Reaction (ED) Referrals: Enrique Espinoza MD [Primary Care Provider] - If Needed Additional Instructions: YOUR SYMPTOMS SEEM MORE ALLERGICALLY MEDIATED THAN INFECTIOUS. NO INDICATION FOR ANTIBIOTICS AT PRESENT. REST, HYDRATE, CONTINUE YOUR ALLERGY MEDICINES DAILY. WILL ALSO TREAT WITH PREDNISONE TO HELP WITH ALLERGIC SYMPTOMS. SEEK FOLLOW-UP IF YOU ARE NOT IMPROVING WITH THIS TREATMENT. - Billing Disposition and Condition Condition: STABLE Disposition: Home
== END 2018-09-28 18:25 | disposition home or self-care (01) ==
LOC: UCEAST 17:30
DX: J30.2 Other seasonal allergic rhinitis (principal); I10 Essential (primary) hypertension; Z87.891 Personal history of nicotine dependence
CPT/HCPCS: 99212; G0463